=== PATIENT | male | born 1965 | race Caucasian/White ===

== ENCOUNTER 2016-10-11 10:43 | Emergency (ER) | payer MEDICAID, OTHER ==
[~2016-10-11] VITALS: Wt 71.0 kg
[2016-10-11 12:43] LABS: ADD SCAN DIFF NO
[2016-10-11 12:50] LABS: BASOPHILS % 0.5 % (0.0-2.0); EOSINOPHILS # 0.1 10^3/ul (0.0-0.5); HEMOGLOBIN 15.5 g/dl (14.0-18.0); LYMPHOCYTES # 1.7 10^3/ul (0.8-2.9); LYMPHOCYTES % 27.6 % (15.0-51.0); MEAN CORPUSCULAR HEMOGLOBIN 27.5 pg (29.0-33.0); MEAN CORPUSCULAR VOLUME 83.5 fl (82.0-101.0); MEAN PLATELET VOLUME 9.9 fl (7.4-10.4); MONOCYTE # 0.9 10^3/ul (0.3-0.9); NEUTROPHIL # 3.4 10^3/ul (1.6-7.5); NEUTROPHILS % 56.6 % (39.0-77.0); PLATELET COUNT 308 10^3/UL (140-415); RED BLOOD COUNT 5.63 10^6/ul (4.70-6.10); RED CELL DISTRIBUTION WIDTH 13.4 % (11.5-14.5); WHITE BLOOD COUNT 6.1 10^3/ul (4.8-10.8)
[2016-10-11 12:56] LABS: ALBUMIN 4.9 g/dl (3.3-4.9)
[2016-10-11 12:57] LABS: POTASSIUM 4.2 mmol/L (3.5-5.1)
[2016-10-11 12:59] LABS: ALBUMIN/GLOBULIN RATIO 1.36; BILIRUBIN,INDIRECT 0.1 mg/dl (0-1.1); BILIRUBIN,TOTAL 0.1 mg/dl (0.2-1.3); CREATININE 0.83 mg/dl (0.61-1.24); TOTAL PROTEIN 8.5 g/dl (6.1-8.1)
[2016-10-11 13:00] LABS: CALCIUM 9.3 mg/dl (8.4-10.2)
[2016-10-11] MEDS ORDERED: ACET500C5 PO (13:12)
[2016-10-11] MEDS ORDERED: BENA20TA65 PO (13:12)
--- NOTE | 2016-10-11 13:14 | ERD ---
ER Documentation Chief Complaint Date/Time DATE: 10/11/16 TIME: 13:13 Chief Complaint non traumatic headache and feeling intermittent shaky for 2 wks.no deficit HPI This 51-year-old male presents with 2 weeks history of intermittent multiple complaints. He has bilateral ear discomfort with ringing. He has a mild bitemporal headache. He has intermittent chest pain with movement. Denies fevers, sustain chest pain, shortness breath, vomiting, weakness, abdominal pain. He has a history of hypertension treated in [place] but is not currently taking any medications. His blood pressure is elevated at triage. ROS All systems reviewed and are negative except as per history of present illness. Medications Home Meds Active Scripts Benazepril Hcl* (Lotensin*) 20 Mg Tablet, 20 MG PO DAILY, #30 TAB Prov:GONZALO BRITT MD 10/11/16 Acetaminophen* (Tylophen*) 500 Mg Capsule, 1 CAP PO Q6H Y for PAIN AND OR ELEVATED TEMP, #20 CAP Prov:GONZALO BRITT MD 10/11/16 Allergies Allergies: Coded Allergies: No Known Allergy (Unverified , 10/14/14) PMhx/Soc Hx Alcohol Use: No Hx Substance Use: No Hx Tobacco Use: No Physical Exam Vitals Vital Signs Date Time Temp Pulse Resp B/P Pulse Ox O2 Delivery O2 Flow Rate FiO2 10/11/16 10:50 98.5 78 21 170/91 98 Physical Exam Const: [] Alert, talkative, [id number] per Head: Atraumatic Eyes: Normal Conjunctiva ENT: Normal External Ears, Nose and Mouth. TMs normal per Neck: Full range of motion..~ No meningismus. Resp: Clear to auscultation bilaterally Cardio: Regular rate and rhythm, no murmurs Abd: Soft, non tender, non distended. Normal bowel sounds Skin: No petechiae or rashes Back: No midline or flank tenderness Ext: No cyanosis, or edema Neur: Awake and alert Psych: Normal Mood and Affect Result Diagram: 10/11/16 1230 10/11/16 1230 Results 24 hrs Laboratory Tests Test 10/11/16 12:30 Alanine Aminotransferase (ALT/SGPT) 46IU/L Albumin 4.9g/dl Albumin/Globulin Ratio 1.36 Alkaline Phosphatase 86IU/L Anion Gap 20 Aspartate Amino Transf (AST/SGOT) 32IU/L Basophils # 0.010^3/ul Basophils % 0.5% Blood Urea Nitrogen 18mg/dl Calcium Level 9.3mg/dl Carbon Dioxide Level 29mmol/L Chloride Level 98mmol/L Creatinine 0.83mg/dl Direct Bilirubin 0.00mg/dl Eosinophils # 0.110^3/ul Eosinophils % 1.0% Globulin 3.60g/dl Glucose Level 85mg/dl Hematocrit 47.0% Hemoglobin 15.5g/dl Indirect Bilirubin 0.1mg/dl Lymphocytes # 1.710^3/ul Lymphocytes % 27.6% Mean Corpuscular Hemoglobin 27.5pg Mean Corpuscular Hemoglobin Concent 33.0g/dl Mean Corpuscular Volume 83.5fl Mean Platelet Volume 9.9fl Monocytes # 0.910^3/ul Monocytes % 14.0% Neutrophils # 3.410^3/ul Neutrophils % 56.6% Nucleated Red Blood Cells # 0.010^3/ul Nucleated Red Blood Cells % 0.0/100WBC Platelet Count 67828^3/UL Potassium Level 4.2mmol/L Red Blood Count 5.6310^6/ul Red Cell Distribution Width 13.4% Sodium Level 143mmol/L Total Bilirubin 0.1mg/dl Total Protein 8.5g/dl White Blood Count 6.110^3/ul Procedures/MDM EKG: Rate/Rhythm: [Normal Sinus Rhythm] rate was 69 QRS, ST, T-waves: [No changes consistent w/ acute ischemia] Impression: [No evidence of ischemia or arrhythmia]. Impression-normal EKG CBC and CMP are normal. Patient presents with multiple complaints of tinnitus, headache, intermittent chest pain with movement. There is no signs or symptoms of serious illness currently. I doubt PE, cardiac related etiology, intracranial hemorrhage, mass-effect, neurologic deficit. I do not think imaging will be useful given well appearance of the patient. We will initiate treatment with Lotensin for his elevated blood pressure and instructions to follow-up with [facility] and Tylenol for headache and ear pain. He should return for new or worsening symptoms with primary care doctor. The patient was stable with no new complaints during the ER course. Clinically, there is no current evidence to suggest meningitis, sepsis, acute abdomen, pneumonia, acute coronary syndrome, pulmonary embolism, or any other emergent condition appearing to require further evaluation or hospitalization. The patient should certainly return for any new or worsening symptoms per the aftercare instructions. They should otherwise follow-up with her primary care doctor for reevaluation this week. Departure Diagnosis: Primary Impression: Tinnitus, bilateral Additional Impressions: Headache Headache type: unspecified Headache chronicity pattern: unspecified pattern Intractability: not intractable Qualified Code: R51 - Nonintractable headache, unspecified chronicity pattern, unspecified headache type Hypertension Hypertension type: essential hypertension Qualified Code: I10 - Essential hypertension Condition: Stable Patient Instructions: Tinnitus (Ringing in the Ears), High Blood Pressure ( Hypertension) [facility] Usted se barragan hecho un examen mdico de control que le indica que no est en benita condicin que requiera tratamiento urgente en el Departamento de Emergencia. Un estudio ms profundo y el tratamiento de alonso condicin pueden esperar sin ningn riesgo hasta que usted sea atendida/o en el consultorio de alonso mdico o benita cl krissy. Es responsabilidad suya arreglar benita chris para el seguimiento del liz. MANEJO DE CONDICIONES NO URGENTES EN EL FUTURO 1) Si usted tiene un mdico de atencin primaria: Usted debera llamar a alonso mdico de atencin primaria antes de venir al departamento de emergencia. Despus de las horas de consultorio, alonso doctor o alonso asociado/a est disponible por telfono. El mdico o enfermero de joie en el servicio telefnico puede asesorarle por stan medio para atender el problema, o liz contrario se puede programar benita chris. 2) Si usted no tiene un mdico de atencin primaria: Llame al mdico o clnica de referencia que aparece abajo columba las horas de consultorio para hacer benita chris para que le vean. CLINICAS: [facility] [phone] [facility] [place] [facility] [phone] [facility] [phone] [place] [id number] [phone] [place] [phone] [facility]. [phone] [address] Additional Instructions: BELINDA normal hoy. Cheque otro vez con alonso doctor primario en el proximo hassan or regresa para mas o nueva simptomas. GONZALO BRITT MD Oct 11, 2016 13:14
== END 2016-10-11 13:54 | disposition home or self-care (01) ==
LOC: FTE 10:43
DX: H93.13 Tinnitus, bilateral (principal); I10 Essential (primary) hypertension
CPT/HCPCS: 80053; 85025; 93005; Z7502

== ENCOUNTER 2017-11-09 23:07 | Emergency (ER) | END 2017-11-09 23:37 | disposition left against medical advice (07) ==

== ENCOUNTER 2017-11-10 15:59 | Emergency (ER) | END 2017-11-10 16:37 | disposition home or self-care (01) ==